=== PATIENT | female | born 1980 | race Caucasian/White ===

== ENCOUNTER 2016-12-14 10:11 | Emergency (ER) | payer OTHER ==
[~2016-12-14] VITALS: Ht 172.7 cm; Wt 73.8 kg
[~2016-12-14 10:11] MED LIST: DICLOFENAC SODI75 MG PO; FLEXERIL10 MG PO; LAMICTAL100 MG PO; PERCOCET 5/31 TABLET PO; PROVENTIL HFA6.7 GM IH
[2016-12-14 10:53] LABS: HEMATOCRIT 39.9 % (36.0-46.0); MCH 30.1 PG (29.0-34.0); MCHC 32.8 G/DL (30.0-36.0); MCV 91.7 FL (83-99); MEAN PLAT.VOLUME 9.4 uM^3 (9.5-12.4); PLATELET COUNT 259 K/uL (156-360); RBC DIS.WIDTH-CV 12.3 % (11.8-14.6); RBC DIS.WIDTH-SD 41.5 % (39-53); RED BLOOD COUNT 4.35 M/uL (3.80-5.20); WHITE BLOOD COUNT 5.6 K/uL (4.1-10.2)
[2016-12-14 11:15] LABS: CHLORIDE 107 mEq/L (99-109); POTASSIUM 4.1 mEq/L (3.7-5.4); SODIUM 138 mEq/L (136-147)
[2016-12-14 11:17] LABS: GLUCOSE 78 mg/dL (70-99)
[2016-12-14 11:18] LABS: ANION GAP 7 MEQ/L (2-14)
[2016-12-14 11:19] LABS: TOTAL BILIRUBIN 0.4 mg/dL (0.0-1.0)
[2016-12-14 11:20] LABS: ALKALINE PHOSPHATASE 43 IU/L (3-129)
[2016-12-14 11:21] LABS: GFR ESTIMATE (CALCULATED) > 59 mL/min/
[2016-12-14 11:22] LABS: UREA NITROGEN (BUN) 8 mg/dL (9-23)
[2016-12-14 11:24] LABS: LIPASE 14 U/L (1.0-51.0)
[2016-12-14 11:29] LABS: QUANTITATIVE HCG < 4.0 MIU/ML
[2016-12-14] MEDS ORDERED: LITHOBID300 MG PO (11:59)
[2016-12-14 12:17] LABS: ADD MIUA? YES; BILIRUBIN NEGATIVE; BLOOD NEGATIVE; COLOR YELLOW ((YELLOW)); GLUCOSE (STRIP) NEGATIVE; KETONES NEGATIVE; LEUKOCYTES MODERATE; NITRITE NEGATIVE; PROTEIN (STRIP) NEGATIVE; SPECIFIC GRAVITY 1.008 (1.000-1.030); UROBILINOGEN 0.2 MG/DL (0.2-1.0)
[2016-12-14 12:28] LABS: BACTERIA 3+ /HPF; EPITHELIAL CELLS RARE /HPF; MUCUS NONE SEEN /LPF; RED BLOOD CELLS 0-5 /HPF (0-5); UCUL ADDED? NO; WHITE BLOOD CELLS 0-5 /HPF (0-5)
[2016-12-14] MEDS ORDERED: KEFLEX500 MG PO (14:12)
[2016-12-14] MEDS ORDERED: MOTRIN800 MG PO (14:12)
[2016-12-14] MEDS ORDERED: NORCO 7.5/321 TABLET PO (14:12)
[2016-12-14 14:43] VITALS: BP 103/67
== END 2016-12-14 14:45 | disposition home or self-care (01) ==
LOC: EME 10:11 → EXP 10:11
DX: N83.202 Unspecified ovarian cyst, left side (principal); N39.0 Urinary tract infection, site not specified; K59.00 Constipation, unspecified; J45.909 Unspecified asthma, uncomplicated; Z87.891 Personal history of nicotine dependence
CPT/HCPCS: 74000; 76856; 80053; 81003; 83690; 84702; 85027; 87086; 99281; 99284; J1885